=== PATIENT | female | born 1955 | race Caucasian/White ===

== ENCOUNTER 2018-10-18 13:12 | Emergency (ER) | payer OTHER ==
--- NOTE | 2018-10-18 14:09 | ER Document Report ---
HPI - HPI Patient complains to provider of: insect bite Time Seen by Provider: 10/18/18 14:00 Onset: Other - thursday Pain Level: 3 Context: Patient presents emergency department with complaints of blister to her right. She reports she was bit by a black ant on Thursday. On Thursday she noticed a blister in between her fourth and fifth digit on her right foot. She reports this is happened before when she was bit by a rd ant. She denies other symptoms such as fever vomiting diarrhea. She reports she has to attend an event tonight where she has wears tennis shoes and she cannot put tennis shoes on because of the blister. Denies history of cardiac disease denies history of diabetes. Her tetanus is up-to-date Associated Symptoms: None Exacerbated by: Other - shoes Relieved by: Denies Similar symptoms previously: Yes Recently seen / treated by doctor: No - CONSTITUTIONAL Constitutional: DENIES: Fever, Chills - REPRODUCTIVE LMP: n/a - MUSCULOSKELETAL Musculoskeletal: REPORTS: Extremity pain - R little toe Past Medical History - General Information source: Patient - Social History Smoking Status: Unknown if Ever Smoked Chew tobacco use (# tins/day): No Frequency of alcohol use: None Drug Abuse: None Lives with: Family Family History: None Patient has suicidal ideation: No Patient has homicidal ideation: No Renal/ Medical History: Denies: Hx Peritoneal Dialysis GI Medical History: Reports: Hx Gastroesophageal Reflux Disease Past Surgical History: Reports: Hx Appendectomy, Hx Section, Hx Cholecystectomy - Immunizations Immunizations up to date: Yes Hx Diphtheria, Pertussis, Tetanus Vaccination: Yes Vertical Provider Document - CONSTITUTIONAL Agree With Documented VS: Yes Exam Limitations: No Limitations General Appearance: WD/WN, No Apparent Distress - INFECTION CONTROL TRAVEL OUTSIDE OF THE [place] IN LAST 30 DAYS: No - HEENT HEENT: Atraumatic, Normocephalic - NECK Neck: Supple - RESPIRATORY Respiratory: No Respiratory Distress - CARDIOVASCULAR Cardiovascular: Regular Rate - MUSCULOSKELETAL/EXTREMETIES Musculoskeletal/Extremeties: MAEW, FROM, Tender - tender with erythema and large blister to right dorsal foot inbetween 4th and 5th digit. - NEURO Level of Consciousness: Awake, Alert, Appropriate Motor/Sensory: No Motor Deficit - DERM Integumentary: Warm, Dry Course - Re-evaluation Re-evalutation: 10/18/18 14:23 Area cleaned well with normal saline and Shur-Clens. Drained with 25-gauge. S kin remained intact , patient instructed on the importance of leaving skin there for barrier to infection. Instructed to return to the emergency department for redness increased pain concerns. She verbalized understanding. Dictation of this chart was performed using voice recognition software; therefore, there may be some unintended grammatical errors. - Vital Signs Vital signs: Temp Pulse Resp BP Pulse Ox 97.9 F 100 20 126/73 H 96 10/18/18 13:17 10/18/18 13:17 10/18/18 13:17 10/18/18 13:17 10/18/18 13:17 Discharge - Discharge Clinical Impression: allergic reaction ant bite Condition: Stable Disposition: HOME, SELF-CARE Instructions: Bactroban Ointment ([facility]) Additional Instructions: *You have been treated for an allergic reaction post ant bite with a blister *Apply bactroban ointment twice a day *Monitor the site for signs of infection such as increasing pain, redness, swelling, warmth *Follow up with a primary care provider within one week *Return to ED for signs of infection, worsening condition, changes, needs Monitor your blood pressure. Your blood pressure was elevated today. This may be because you were anxious, in pain or because you need medication. It is important to follow up with your primary care provider for full evaluation. Forms: Elevated Blood Pressure
[2018-10-18] MEDS ORDERED: MUPIROCIN CALCIUM 2% CREAM 15 GM TP ONE (14:20)
[2018-10-18 14:39] VITALS: BP 118/72
== END 2018-10-18 14:39 | disposition home or self-care (01) ==
LOC: ER 13:12
DX: T63.421A Toxic effect of venom of ants, accidental (unintentional), initial encounter (principal)
CPT/HCPCS: 99281; J3490